=== PATIENT | female | born 1995 | race Two or more races ===

== ENCOUNTER → 2020-05-23 | Outpatient (CLI) | payer OTHER | END | disposition home or self-care (01) | LOC: PRENATAL 13:51 | PROVIDERS: ATTEND Obstetrics & Gynecology Maternal & Fetal Medicine | DX: O35.0XX1 Maternal care for (suspected) central nervous system malformation in fetus, fetus 1 (principal); O35.3XX1 Maternal care for (suspected) damage to fetus from viral disease in mother, fetus 1; O98.512 Other viral diseases complicating pregnancy, second trimester; Z36.89 Encounter for other specified antenatal screening; Z3A.25 25 weeks gestation of pregnancy ==

== ENCOUNTER 2020-08-24 13:00 | Inpatient (IN) | payer OTHER ==
[~2020-08-24] VITALS: Ht 170.2 cm; Wt 90.3 kg
[2020-09-01] MEDS ORDERED: PRENATAL TABLE1 EAC1 PO (06:51)
[2020-09-03] MEDS ORDERED: ACETAMINOPHEN325 M1 PO (13:34)
== END 2020-09-03 13:47 | disposition home or self-care (01) | DRG 805 ==
LOC: LDR 09-01 05:46 → OB/GYN 09-01 05:46 → LDR 09-01 10:32 → OB/GYN 09-01 13:47
PROVIDERS: ADMIT Specialist; ATTEND Specialist
PROC: 10E0XZZ Delivery of Products of Conception, External Approach (ICD-10-PCS; principal; 2020-09-01)
PROC: 0KQM0ZZ Repair Perineum Muscle, Open Approach (ICD-10-PCS; 2020-09-01)
PROC: 4A1HXFZ Monitoring of Products of Conception, Cardiac Rhythm, External Approach (ICD-10-PCS; 2020-09-01)
PROC: 10907ZC Drainage of Amniotic Fluid, Therapeutic from Products of Conception, Via Natural or Artificial Opening (ICD-10-PCS; 2020-09-01)
PROC: 3E033VJ Introduction of Other Hormone into Peripheral Vein, Percutaneous Approach (ICD-10-PCS; 2020-09-01)
DX: O98.52 Other viral diseases complicating childbirth (principal); U07.1 COVID-19; O70.1 Second degree perineal laceration during delivery; Z37.0 Single live birth; Z3A.38 38 weeks gestation of pregnancy